=== PATIENT | male | born 1965 | race Caucasian/White ===

== ENCOUNTER → 2017-03-27 | Outpatient (REF) | payer BC, OTHER ==
[~2017-03-27] MED LIST: /CELE20CA; /MOXI40TA; ATROVENT0.02%; AUGM875T28 PO; BUDE20IN; CALCTAB22; CARA1TAB6 PO; GEMF600T; HYDR25TA6; IRON65TA PO; LISI10TA4; NEXI40CA PO; NICO21DI4; NICO21DI5 TD; PRED10TA2; SIMV40TA2; THERGRAN; VITA200015 PO; XOPE1.252; vitamin b12
[2017-03-27 14:00] LABS: CONTROL LINE HPYORI INT CTR LINE PRESENT
== END ==
LOC: M LAB REF 13:13
PROVIDERS: ATTEND Nurse Practitioner Family
DX: R10.12 Left upper quadrant pain (principal)

== ENCOUNTER → 2017-08-11 | Outpatient (REF) | payer OTHER ==
[2017-08-13 11:43] LABS: MEAN CORPUSCULAR VOLUME 91.5 fl (80.0-96.0); WHITE BLOOD COUNT 8.8 10^3/uL (4.0-10.0)
[2017-08-13 11:44] LABS: BASO % 0.9 % (0.0-1.0); EOS % 2.9 % (0.0-3.0); IMMATURE GRANULOCYTE % 0.2 % (0-0); LYMPH % 18.5 % (24.0-44.0); MEAN CORPUSCULAR HEMOGLOBIN 29.5 pg (27.0-33.0); MEAN CORPUSCULAR HGB CONC 32.3 g/dl (32.0-36.5); MONO % 6.5 % (0.0-5.0); PLATELET COUNT, AUTOMATED 210 10^3/uL (150-450); RED CELL DISTRIBUTION WIDTH 13.2 % (11.5-14.5)
[2017-08-13 11:45] LABS: BASO # 0.1 10^3/uL (0.0-0.2); EOS # 0.3 10^3/uL (0.0-0.50); LYMPH # 1.6 10^3/uL (1.5-4.5); MONO # 0.6 10^3/uL (0.0-0.8); NEUTROPHILS # 6.2 10^3/uL (1.8-7.7)
[2017-08-13 11:46] LABS: ADD MANUAL DIFFER NO; ADD MORPHOLOGY? NO; BLOOD UREA NITROGEN 14 MG/DL (7-18); DIFF SLIDE NUMBER 372; GLUCOSE, FASTING 70 MG/DL (70-105)
[2017-08-13 11:47] LABS: ALKALINE PHOSPHATASE 72 U/L (45-117); ALT/SGPT 28 U/L (12-78); ANION GAP 5 MEQ/L (8-16); AST/SGOT 21 U/L (7-37); BILIRUBIN,TOTAL 0.5 MG/DL (0.2-1.0); CARBON DIOXIDE LEVEL 32 MEQ/L (21-32); CHLORIDE LEVEL 106 MEQ/L (98-107); CREATININE FOR GFR 0.72 MG/DL (0.70-1.30); GLOMERULAR FILTRATION RATE > 60.0 (>56); POTASSIUM SERUM 4.3 MEQ/L (3.5-5.1); SODIUM LEVEL 143 MEQ/L (136-145); TOTAL PROTEIN 6.8 GM/DL (6.4-8.2)
[2017-08-13 11:48] LABS: ALBUMIN 3.9 GM/DL (3.2-5.2); ALBUMIN/GLOBULIN RATIO 1.34 (1.00-1.93)
== END ==
LOC: M LABDRWAD 10:28
PROVIDERS: ATTEND Physician Assistant
DX: R10.32 Left lower quadrant pain (principal)

== ENCOUNTER 2017-09-03 11:18 | Day surgery (SDC) | payer BC ==
[~2017-09-03] VITALS: Ht 182.9 cm; Wt 91.8 kg
[~2017-09-03 11:18] MED LIST changes: +ATOR40TA75 PO; +PROPOFOL 200 MG/20 ML VIAL As Ordered ONE; +antibiotic
[2017-09-03] MEDS ORDERED: MULT1TAB10 PO (11:53)
[2017-09-03] MEDS ORDERED: ASPI1TAB PO (11:53)
[2017-09-03] MEDS ORDERED: SUCR1TA PO (11:53)
[2017-09-03] MEDS ORDERED: COLC1TAB13 PO (11:53)
[2017-09-03] MEDS ORDERED: BACT800T5 PO (11:53)
[2017-09-03] MEDS ORDERED: NS 1,000 ML IV ONE (12:00)
[2017-09-03] MEDS ORDERED: LIDOCAINE 2% INJ 100 MG/5 ML SDV (FOR ANES.) As Ordered ONE (12:13)
--- NOTE | 2017-09-03 14:10 | ROOR ---
Patient Name: Scar Pillai Procedure Date: 09/03/2017 1:35 PM Date of : 1965 Age: 52 Room: [facility] Gender: Male Note Status: Finalized Procedure: Total Colonoscopy to Cecum + Cold Snare Polypectomy + Hemoclips Indications: Screening for colorectal malignant neoplasm Providers: Mendoza Parker MD Referring MD: SOCO WEBER JR, MD Requesting Provider: Medicines: Monitored Anesthesia Care Complications: No immediate complications. Procedure: Pre-Anesthesia Assessment: - The heart rate, respiratory rate, oxygen saturations, blood pressure, adequacy of pulmonary ventilation, and response to care were monitored throughout the procedure. The Colonoscope was introduced through the anus and advanced to the cecum, identified by appendiceal orifice and ileocecal valve. The colonoscopy was performed without difficulty. The patient tolerated the procedure well. The quality of the bowel preparation was excellent. Findings: The perianal and digital rectal examinations were normal. Non-bleeding internal hemorrhoids were found during retroflexion. The hemorrhoids were small and Grade I (internal hemorrhoids that do not prolapse). Scattered small-mouthed diverticula were found in the recto-sigmoid colon, sigmoid colon and descending colon. A small polyp was found at 50 cm proximal to the anus. The polyp was sessile. The polyp was removed with a cold snare. Resection and retrieval were complete. A medium polyp was found at 20 cm proximal to the anus. The polyp was sessile. The polyp was removed with a cold snare. Resection and retrieval were complete. To prevent bleeding after the polypectomy, two hemostatic clips were successfully placed (MR conditional). There was no bleeding at the end of the procedure. The exam was otherwise without abnormality on direct and retroflexion views. Impression: - Non-bleeding internal hemorrhoids. - Diverticulosis in the recto-sigmoid colon, in the sigmoid colon and in the descending colon. - One small polyp at 50 cm proximal to the anus, removed with a cold snare. Resected and retrieved. - One medium polyp at 20 cm proximal to the anus, removed with a cold snare. Resected and retrieved. Clips (MR conditional) were placed. - The examination was otherwise normal on direct and retroflexion views. - The exam was otherwise normal to the cecum. Recommendation: - Patient has a contact number available for emergencies. The signs and symptoms of potential delayed complications were discussed with the patient. Return to normal activities tomorrow. Written discharge instructions were provided to the patient. - High fiber diet. - Discharge patient to home. - Continue present medications. - Await pathology results. - Telephone GI clinic for pathology results in 1 week. - Repeat colonoscopy for surveillance based on pathology results. - Return to referring physician. - The findings and recommendations were discussed with the patient's family. Mendoza Parker MD Mendoza Parker MD 09/03/2017 2:10:20 PM This report has been signed electronically. Number of Addenda: 0 Note Initiated On: 09/03/2017 1:35 PM Estimated Blood Loss: Estimated blood loss: none.
[2017-09-03 14:30] VITALS: BP 133/84
== END 2017-09-03 14:36 | disposition home or self-care (01) ==
LOC: M OPP 11:18
PROVIDERS: ATTEND Internal Medicine Gastroenterology
DX: Z12.11 Encounter for screening for malignant neoplasm of colon (principal); D12.5 Benign neoplasm of sigmoid colon; K57.30 Diverticulosis of large intestine without perforation or abscess without bleeding; K64.0 First degree hemorrhoids; I25.10 Atherosclerotic heart disease of native coronary artery without angina pectoris; E78.5 Hyperlipidemia, unspecified; M19.90 Unspecified osteoarthritis, unspecified site; G47.30 Sleep apnea, unspecified; K13.0 Diseases of lips; Z98.84 Bariatric surgery status; Z87.891 Personal history of nicotine dependence; Z79.899 Other long term (current) drug therapy; Z79.82 Long term (current) use of aspirin

== ENCOUNTER → 2017-11-28 | Outpatient (REF) | payer BC ==
[2017-11-28 18:54] LABS: IRON (FE) 113 UG/DL (65-175); PERCENT SATURATION 33.4 % (19.7-50.0); TOTAL IRON BINDING CAPACITY 338 UG/DL (250-450)
[2017-11-28 19:05] LABS: FOLATE 10.9 NG/ML; VITAMIN B12 LEVEL 495 PG/ML
== END ==
LOC: M LAB REF 16:36
DX: I25.10 Atherosclerotic heart disease of native coronary artery without angina pectoris (principal); Z98.84 Bariatric surgery status
CPT/HCPCS: 82746

== ENCOUNTER → 2018-10-06 | Outpatient (REF) | payer BC ==
[~2018-10-06] MED LIST changes: +ASPI1TAB PO; +BACT800T5 PO; +COLC1TAB13 PO; +MULT1TAB10 PO; -NICO21DI5 TD; +NICO21DI6 TD; -PROPOFOL 200 MG/20 ML VIAL As Ordered ONE; +SUCR1TA PO
== END ==
LOC: M LAB REF 18:57
PROVIDERS: ATTEND Nurse Practitioner Family
DX: B00.0 Eczema herpeticum (principal); R53.83 Other fatigue

== ENCOUNTER → 2018-12-03 | Outpatient (REF) | payer OTHER ==
[2018-12-03 19:05] LABS: PERCENT SATURATION 39.3 % (19.7-50.0)
== END ==
LOC: M LAB REF 17:40
PROVIDERS: ATTEND Internal Medicine
DX: Z98.84 Bariatric surgery status (principal); R41.3 Other amnesia

== ENCOUNTER → 2019-08-10 | Outpatient (REF) | payer OTHER ==
[~2019-08-10] MED LIST changes: -/CELE20CA; -/MOXI40TA; -ASPI1TAB PO; +ASPI81TA26 PO; +AVEL1TAB2; +CELE1CAP4
== END ==
LOC: M LABNEURO 09:40
PROVIDERS: ATTEND Psychiatry & Neurology Neurology
DX: G62.9 Polyneuropathy, unspecified (principal)

== ENCOUNTER → 2019-10-04 | Outpatient (CLI) | payer OTHER ==
[2019-10-04 12:34] LABS: FOLATE 15.7 NG/ML
== END ==
LOC: M WUC 10:21
PROVIDERS: ATTEND Psychiatry & Neurology Neurology
DX: E53.8 Deficiency of other specified B group vitamins (principal)

== ENCOUNTER → 2019-11-08 | Outpatient (REF) | payer OTHER ==
[2019-11-08 13:18] LABS: BASO # 0.1 10^3/uL (0.0-0.2); BASO % 1.2 % (0.0-1.0); EOS # 0.1 10^3/uL (0.0-0.5); EOS % 2.2 % (0.0-3.0); HEMOGLOBIN 12.7 g/dl (13.5-17.5); LYMPH # 0.8 10^3/uL (1.5-5.0); LYMPH % 16.7 % (24.0-44.0); MEAN CORPUSCULAR HEMOGLOBIN 30.9 pg (27.0-33.0); MEAN CORPUSCULAR HGB CONC 31.8 g/dl (32.0-36.5); MEAN CORPUSCULAR VOLUME 97.3 fl (80.0-96.0); MONO # 0.5 10^3/uL (0.0-0.8); MONO % 9.7 % (0.0-5.0); NEUTROPHILS # 3.5 10^3/uL (1.5-8.5); PLATELET COUNT, AUTOMATED 156 10^3/uL (150-450); RED BLOOD COUNT 4.11 10^6/uL (4.30-6.10)
[2019-11-08 13:24] LABS: ALBUMIN 4.1 GM/DL (3.2-5.2); ALT/SGPT 153 U/L (12-78); BILIRUBIN,TOTAL 0.6 MG/DL (0.2-1.0); BLOOD UREA NITROGEN 9 MG/DL (7-18); C REACTIVE PROTEIN QUANTITATIV < 0.30 MG/DL (0.00-0.30); CALCIUM LEVEL 8.7 MG/DL (8.5-10.1); CARBON DIOXIDE LEVEL 29 MEQ/L (21-32); CHLORIDE LEVEL 105 MEQ/L (98-107); COMPLEMENT C3 71 MG/DL (90-180); COMPLEMENT C4 29 MG/DL (10-40); CREATININE FOR GFR 0.64 MG/DL (0.70-1.30); GLOMERULAR FILTRATION RATE > 60.0 (>56); GLUCOSE, FASTING 77 MG/DL (70-100); RHEUMATOID FACTOR QUANT 12.4 IU/ML (<15.0); SODIUM LEVEL 141 MEQ/L (136-145)
[2019-11-08 13:29] LABS: INR 1.02; PROTHROMBIN TIME 13.1 SECONDS (11.8-14.0)
[2019-11-08 13:30] LABS: PARTIAL THROMBOPLASTIN TIME 28.8 SECONDS (25.0-38.4)
[2019-11-08 14:00] LABS: ERYTHROCYTE SEDIMENTATION RATE 10 mm/hr (0-20)
[2019-11-09 11:27] LABS: ALBUMIN 4.44 GM/DL (3.29-5.55); ALBUMIN % 63.4 % (55.8-66.1); ALPHA-1-GLOBULIN % 5.4 % (2.9-4.9); ALPHA-1-GLOBULINS 0.38 GM/DL (0.17-0.41); ALPHA-2-GLOBULINS 0.55 GM/DL (0.42-0.99); ALPHA-2-GLOBULINS % 7.9 % (7.1-11.8); BETA-1-GLOBULINS 0.39 GM/DL (0.28-0.60); BETA-1-GLOBULINS % 5.6 % (4.7-7.2); BETA-2-GLOBULINS 0.36 GM/DL (0.19-0.55); BETA-2-GLOBULINS % 5.1 % (3.2-6.5); GAMMA GLOBULIN % 12.6 % (11.1-18.8); GAMMA GLOBULINS 0.88 GM/DL (0.65-1.58)
[2019-11-10 14:12] LABS: ANTI DS-DNA AB Negative (Negative); CYCLIC CITRULLINATED PEPTIDE 22 units (0-19); RNP ANTIBODY < 0.2 AI (0.0-0.9); SMITHS ANTIBODY < 0.2 AI (0.0-0.9); SSA SJOGRENS A <0.2 AI (0.0-0.9); SSB SJOGRENS B <0.2 AI (0.0-0.9)
== END ==
LOC: M SFHCRHEU 10:10
PROVIDERS: ATTEND Internal Medicine
DX: M25.50 Pain in unspecified joint (principal); R76.8 Other specified abnormal immunological findings in serum; F10.20 Alcohol dependence, uncomplicated

== ENCOUNTER 2021-03-17 17:54 | Observation (INO) | payer OTHER, SELFPAY ==
[~2021-03-17] VITALS: Ht 182.9 cm; Wt 117.8 kg
[~2021-03-17 17:54] MED LIST changes: +COLC0.6T47 PO; -COLC1TAB13 PO; +chlordiazePOXIDE 25 MG CAP PO SCH
[2021-03-17] MEDS ORDERED: LORazepam 2 MG/ML VIAL IV STA ×2 (18:06→20:40)
[2021-03-17] MEDS ORDERED: LORazepam 2 MG TAB PO PRN ×2 (18:10→21:25)
[2021-03-17] MEDS ORDERED: NS 1,000 ML IV ONE ×2 (18:10→20:40)
[2021-03-17] MEDS: THIAMINE 100 MG TAB PO SCH (18:29)
[2021-03-17 18:31] LABS: BASO % 0.9 % (0.0-1.0); EOS # 0.1 10^3/uL (0.0-0.5); EOS % 1.1 % (0.0-3.0); HEMATOCRIT 45.7 % (42.0-52.0); HEMOGLOBIN 15.1 g/dl (13.5-17.5); LYMPH # 0.7 10^3/uL (1.5-5.0); LYMPH % 15.8 % (24.0-44.0); MEAN CORPUSCULAR HEMOGLOBIN 29.9 pg (27.0-33.0); MEAN CORPUSCULAR VOLUME 90.5 fl (80.0-96.0); MONO # 0.5 10^3/uL (0.0-0.8); MONO % 9.8 % (2.0-8.0); NEUTROPHILS # 3.3 10^3/uL (1.5-8.5); NEUTROPHILS % 72.2 % (36.0-66.0); PLATELET COUNT, AUTOMATED 104 10^3/uL (150-450); RED BLOOD COUNT 5.05 10^6/uL (4.30-6.10); WHITE BLOOD COUNT 4.6 10^3/uL (4.0-10.0)
[2021-03-17] MEDS ORDERED: SULF1TAB30 PO (18:52)
[2021-03-17] MEDS ORDERED: AMIT25TA17 PO (18:52)
[2021-03-17] MEDS ORDERED: LOTR5CAP2 PO (18:52)
[2021-03-17 19:02] LABS: ACETAMINOPHEN LEVEL < 2.0 UG/ML (10.0-30.0); ALBUMIN 3.6 GM/DL (3.2-5.2); ALT/SGPT 62 U/L (12-78); BILIRUBIN,DIRECT 0.4 MG/DL (0.0-0.2); BILIRUBIN,TOTAL 1.1 MG/DL (0.2-1.0); BLOOD UREA NITROGEN 11 MG/DL (7-18); CALCIUM LEVEL 8.9 MG/DL (8.5-10.1); CARBON DIOXIDE LEVEL 29 MEQ/L (21-32); CHLORIDE LEVEL 98 MEQ/L (98-107); CK-MB VALUE MASS 2.3 NG/ML (<3.6); CPK CREATINE PHOSPHOKINASE 85 U/L (39-308); CREATININE FOR GFR 0.77 MG/DL (0.70-1.30); ETHYL ALCOHOL (ETHANOL) < 0.003 % (0.000-0.010); GLOMERULAR FILTRATION RATE > 60.0 (>56); GLUCOSE, FASTING 188 MG/DL (70-100); MB/CK RELATIVE INDEX 2.71 (< OR =4); POTASSIUM SERUM 3.8 MEQ/L (3.5-5.1); SALICYLATE LEVEL 3.2 MG/DL (5.0-30.0); SODIUM LEVEL 134 MEQ/L (136-145); TROPONIN I < 0.02 NG/ML (< 0.10)
[2021-03-17 19:25] LABS: RSV AMPLIFICATION NEGATIVE (NEGATIVE)
[2021-03-17] MEDS ORDERED: chlordiazePOXIDE 25 MG CAP PO ONE (19:30)
[2021-03-17 19:38] LABS: OSMOLALITY SERUM 287 MOSM/KG (275-295)
--- NOTE | 2021-03-17 19:57 | REPVR ---
PROCEDURE INFORMATION: Exam: CT Head Without Contrast Exam date and time: 03/17/2021 6:57 PM Age: 55 years old Clinical indication: Injury or trauma and condition or disease; Fall; Blunt trauma (contusions or hematomas); Consciousness not specified; Convulsions or seizures; Unspecified; Additional info: Seizure/fall TECHNIQUE: Imaging protocol: Computed tomography of the head without contrast. Radiation optimization: All CT scans at this facility use at least one of these dose optimization techniques: automated exposure control; mA and/or kV adjustment per patient size (includes targeted exams where dose is matched to clinical indication); or iterative reconstruction. COMPARISON: No relevant prior studies available. FINDINGS: Brain: Ventricles, basilar cisterns, and sulci are normal in size for age. No intracranial mass, mass effect or midline shift. No acute intracranial hemorrhage. No focal effacement of cortical sulci to indicate acute cortical infarct. Paranasal sinuses: Imaged paranasal sinuses are clear. Mastoid air cells: Mastoid air cells are normally aerated. Orbital cavity: Imaged orbits are unremarkable. Bones/joints: No calvarial fracture or destructive process. Soft tissues: Left frontoparietal vertex extracranial scalp swelling. IMPRESSION: 1. Left frontoparietal vertex extracranial scalp swelling. 2. No underlying acute or concerning focal intracranial abnormality. Electronically signed by: Rodolfo Montague On 03/17/2021 19:57:23 PM
--- NOTE | 2021-03-17 19:59 | REPVR ---
PROCEDURE INFORMATION: Exam: CT Cervical Spine Without Contrast Exam date and time: 03/17/2021 6:57 PM Age: 55 years old Clinical indication: Injury or trauma; Fall; Blunt trauma; Additional info: Seizure/fall TECHNIQUE: Imaging protocol: Computed tomography images of the cervical spine without contrast. Radiation optimization: All CT scans at this facility use at least one of these dose optimization techniques: automated exposure control; mA and/or kV adjustment per patient size (includes targeted exams where dose is matched to clinical indication); or iterative reconstruction. COMPARISON: No relevant prior studies available. FINDINGS: Bones/joints: No traumatic segmental malalignment of cervical spine or craniocervical junction. Vertebral body height is maintained at all levels. No acute fracture. No destructive or blastic cervical spine osseous lesion. Discs/Spinal canal/Neural foramina: Intervertebral disc height is decreased at multiple levels, with typical degenerative pattern and associated endplate, articular pillar and uncovertebral spurs. Lungs: No concerning abnormality of the imaged lung apices. Soft tissues: Soft tissues show no concerning abnormality or asymmetry. IMPRESSION: 1. No acute fracture or traumatic subluxation of the cervical spine. 2. Multilevel degenerative disc and articular pillar arthropathy. Electronically signed by: Rodolfo Montague On 03/17/2021 19:59:08 PM
[2021-03-17 21:10] LABS: AMPHETAMINES LEVEL URINE NEGATIVE (NEGATIVE); BARBITURATES URINE NEGATIVE (NEGATIVE); BENZODIAZEPINES URINE NEGATIVE (NEGATIVE); CANNABINOIDS URINE NEGATIVE (NEGATIVE); COCAINE METABOLITE URINE NEGATIVE (NEGATIVE); METHADONE URINE NEGATIVE (NEGATIVE); OPIATES URINE NEGATIVE (NEGATIVE); PHENCYCLIDINE URINE NEGATIVE (NEGATIVE)
[2021-03-17] MEDS ORDERED: MOM 30ML SUSPENSION UDC PO PRN (21:25)
[2021-03-17] MEDS ORDERED: NICOTINE 21MG/24HR 1 EA TRANSDERMAL TD ONE (21:25)
[2021-03-17] MEDS ORDERED: ACETAMINOPHEN TAB 650MG DOSE (2X325MG) PO PRN (21:25)
[2021-03-17] MEDS ORDERED: MAALOX 30 ML SUSP *UDC PO PRN (21:25)
--- NOTE | 2021-03-17 21:46 | REPVR ---
PROCEDURE INFORMATION: Exam: XR Chest Exam date and time: 03/17/2021 9:02 PM Age: 55 years old Clinical indication: Other: Altered mental status TECHNIQUE: Imaging protocol: XR of the chest. Views: 1 view. COMPARISON: CR Abdomen,Flat Upright,PA CHEST 09/19/2014 5:39 PM FINDINGS: Lungs: Degree of lung inflation is normal. No evidence of pulmonary edema. No focal consolidation or parenchymal lung mass. Pleural spaces: No pleural effusion or pneumothorax. Heart/Mediastinum: Cardiac silhouette appears normal. No adenopathy or hilar mass. Bones/joints: Osseous structures show no concerning abnormality. IMPRESSION: No acute or focal cardiopulmonary process. Electronically signed by: Rodolfo Montague On 03/17/2021 21:46:06 PM
[2021-03-17] MEDS ORDERED: hydrALAZINE 20MG/ML 1ML VIAL (J0360 PER 20MG) IV PRN (21:50)
--- NOTE | 2021-03-17 22:01 | HPEPDOC ---
[facility] Medical History & Physical Date of Admission Mar 17, 2021 Date of Service: Mar 17, 2021 Primary Care Physician: A Attending Physician: SAJI DOBBINS MD History and Physical CHIEF COMPLAINT: Seizure HISTORY OF PRESENT ILLNESS: . Mr. Pillai is a 55-year-old male who was brought to the ER by EMS after suffering a seizure at home. The patient is a known alcoholic and decided to try to stop drinking 2-3 days ago. At the time of my evaluation, the patient was oriented to person and place. He did not know the year and was confused as to events. He said the month was "March". His fiance is at bedside and details of history are obtained from a thorough review of the medical record and from the patient and the patient's fiance. He admits to drinking anywhere from half of a fifth to 1 L of bourbon whiskey per day. He has been to rehabilitation in the past with the most recent stay about 1 year ago. He has had seizures with withdrawal in the past. He denies any fever, chills, nausea, vomiting or diarrhea. He was very reluctant to stay, but agreed after he was told that he was not able to make his own decisions at this point in time. He did hit his head. When the seizure occurred. CT showed a left frontoparietal extracranial scalp swelling but no acute fracture or other acute pathophysiology. CT of the neck was negative for any acute fracture but did show degenerative disc disease. The patient was given Ativan and Librium in the ER and started on IV fluids. He was also given multivitamin and thiamine by mouth. Blood pressure was elevated at 205/98. Pulse was 93. Patient was satting 98% on room air. He was afebrile. Labs were remarkable for decreased platelets at 104. Lactic acid was 2.9. Sodium is decreased at 134. Total bilirubin 1.1. There is some mild elevation of AST at 70. Patient's fiance denies any history of hepatitis, cirrhosis or pancreatitis. PAST MEDICAL HISTORY: 1. Obstructive sleep apnea, noncompliant with CPAP. 2. Coronary artery disease. 3. Hyperlipidemia. 4. Hypertension. 5. Degenerative joint disease. 6. Peptic ulcer disease. 7. Gastric bypass. 8. COPD 9. Gout. 10. Seizure secondary to alcohol withdrawal PAST SURGICAL HISTORY: 1. Gastric bypass. 2. Heart catheterization with stent placement. 3. Arthroscopy on the right knee SOCIAL HISTORY: Tobacco use: Patient admits to smoking 2 packs of cigarettes per day ETOH: Drinks anywhere from half a fifth to 1 L of bourbon whiskey per day Illicit drug use: Denies Patient lives with: His fiance FAMILY HISTORY: Patient's father is 79 years old and was recently diagnosed with congestive heart failure. His mother at 52 with a history of heart disease. REVIEW OF SYSTEMS: Complete 10 point review systems is negative except as noted above PHYSICAL EXAMINATION: Patient is seen in the ER, He is somewhat lethargic and by the end of the evaluation was drifting off easily. He is oriented to person and situation. HEENT is WNL. Neck is supple. Lungs with expiratory wheeze. Heart regular rate and rhythm without murmur. Abdomen is soft, non-tender to palpation with bowel sounds positive. Extremities with good ROM and strength equal bilaterally. No lower extremity edema. Pedal pulses are positive. Skin is warm and dry with no obvious rash or lesion. Neuro: grossly intact. Psych: As noted ASSESSMENT AND PLAN: 1. Alcohol withdrawal with seizure. We'll continue the patient on C1 protocol and add Librium per protocol. Will continue multivitamin, thiamine and folic acid daily. Will continue on IV fluids for now. Continue to pet counselor for cessation. Will consult case management for possible referral to rehabilitation. 2. Hypertension with hypertensive urgency. We'll continue home Lotrel and will add hydralazine for use as needed. Monitor with routine vital signs and adjust medications as needed based on trends. 3. Peptic ulcer disease/gastroesophageal reflux disease with history of gastric bypass. Protonix. 4. Lactic acidosis with alcohol withdrawal seizure. Continue IV fluids and recheck lactic acid per protocol. 5. Thrombocytopenia with alcohol abuse. No history of cirrhosis noted. Continue to monitor with daily labs. 6. Hyperglycemia with no history of diabetes. Will check HbA1c in the morning. Monitor blood glucose with daily labs for now. 7. DVT prophylaxis. Will add Lovenox. CODE STATUS: CODE STATUS was discussed with the patient's fiance as the patient is unable to address at this time. We will consider him full code. His father, Jasmeet, would act as his surrogate if he were unable to make his own decisions. Patient is considered high risk of further deterioration including recurrent intractable seizure. He is admitted for close observation and further evaluation and expected to remain at least one midnight. Vital Signs Vital Signs Date Time Temp Pulse Resp B/P (MAP) Pulse Ox O2 Delivery O2 Flow Rate FiO2 03/17/21 21:00 90 20 165/83 (110) 98 Room Air 03/17/21 19:42 97.3 Laboratory Data Labs 24H Laboratory Tests 2 03/17/21 18:19: Immature Granulocyte % (Auto) 0.2, Neutrophils (%) (Auto) 72.2H, Lymphocytes (%) (Auto) 15.8L, Monocytes (%) (Auto) 9.8H, Eosinophils (%) (Auto) 1.1, Basophils (%) (Auto) 0.9, Neutrophils # (Auto) 3.3, Lymphocytes # (Auto) 0.7L, Monocytes # (Auto) 0.5, Eosinophils # (Auto) 0.1, Basophils # (Auto) 0.0, Nucleated Red Blood Cells % (auto) 0.0, Anion Gap 7L, Glomerular Filtration Rate > 60.0, Osmolality 287, Calcium Level 8.9, Total Bilirubin 1.1H, Direct Bilirubin 0.4H, Aspartate Amino Transf (AST/SGOT) 70H, Alanine Aminotransferase (ALT/SGPT) 62, Alkaline Phosphatase 99, Ammonia 17, Total Creatine Kinase 85, Creatine Kinase MB 2.3, Creatine Kinase MB Relative Index 2.71, Troponin I < 0.02, Total Protein 7.0, Albumin 3.6, Albumin/Globulin Ratio 1.1, Thyroid Stimulating Hormone (TSH) 1.040, Salicylates Level 3.2L, Acetaminophen Level < 2.0L, Ethyl Alcohol Level < 0.003, Coronavirus (COVID-19)(PCR) NEGATIVE, Influenza Type A (RT-PCR) NEGATIVE, Influenza Type B (RT-PCR) NEGATIVE, Respiratory Syncytial Virus (PCR) NEGATIVE 03/17/21 18:26: Lactic Acid Level 2.9*H, Urine Opiates Screen NEGATIVE, Urine Methadone Screen NEGATIVE, Urine Barbiturates Screen NEGATIVE, Urine Phencyclidine Screen NEGATIVE, Urine Amphetamines Screen NEGATIVE, Urine Benzodiazepines Screen NEGATIVE, Urine Cocaine Metabolite Screen NEGATIVE, Urine Cannabinoids Screen NEGATIVE CBC/BMP Laboratory Tests 03/17/21 18:19 Home Medications Scheduled Amitriptyline HCl (Amitriptyline HCl) 25 Mg Tablet, 25 MG PO DAILY Amlodipine Besylate/Benazepril (Lotrel 5-10 mg Capsule) 1 Each Capsule, 1 CAP PO DAILY Aspirin (Aspirin EC) 81 Mg Tab, 81 MG PO DAILY Atorvastatin Calcium (Atorvastatin Calcium) 40 Mg Tab, 40 MG PO DAILY Sulfasalazine (Sulfasalazine) 500 Mg Tablet, 500 MG PO DAILY Allergies Coded Allergies: No Known Allergies (Verified , 09/02/17) A-FIB/CHADSVASC A-FIB History Current/History of A-Fib/PAF?: No JOSE SILVA Mar 17, 2021 22:01
[2021-03-17 22:33] LABS: RSV AMPLIFICATION NEGATIVE (NEGATIVE)
[2021-03-17 23:00] VITALS: BP_SYST 174; BP_DIAS 100; BP_DIAS 104
[2021-03-18] VITALS (7 sets, daily range): BP systolic 170–180; BP diastolic 100–110; O2SAT 94–95
[2021-03-18] MEDS ORDERED: chlordiazePOXIDE 25 MG CAP PO SCH
[2021-03-18] MEDS: NS 1,000 ML IV SCH ×2 (00:59→07:25)
[2021-03-18 05:54] LABS: HEMOGLOBIN 13.8 g/dl (13.5-17.5); MEAN CORPUSCULAR HEMOGLOBIN 29.9 pg (27.0-33.0); MEAN CORPUSCULAR HGB CONC 32.9 g/dl (32.0-36.5); MEAN CORPUSCULAR VOLUME 90.9 fl (80.0-96.0); PLATELET COUNT, AUTOMATED 113 10^3/uL (150-450); RED BLOOD COUNT 4.62 10^6/uL (4.30-6.10); WHITE BLOOD COUNT 5.1 10^3/uL (4.0-10.0)
[2021-03-18 06:19] LABS: BLOOD UREA NITROGEN 8 MG/DL (7-18); CALCIUM LEVEL 8.4 MG/DL (8.5-10.1); CARBON DIOXIDE LEVEL 32 MEQ/L (21-32); CHLORIDE LEVEL 103 MEQ/L (98-107); CREATININE FOR GFR 0.58 MG/DL (0.70-1.30); GLOMERULAR FILTRATION RATE > 60.0 (>56); GLUCOSE, FASTING 85 MG/DL (70-100); POTASSIUM SERUM 3.7 MEQ/L (3.5-5.1); SODIUM LEVEL 138 MEQ/L (136-145)
[2021-03-18] MEDS ORDERED: BENAZEPRIL 20 MG TAB PO SCH (09:00)
[2021-03-18] MEDS ORDERED: BENAZEPRIL 5 MG TAB PO SCH (09:00)
[2021-03-18] MEDS ORDERED: PANTOPRAZOLE 40MG TAB (PROTONIX) PO SCH (09:00)
[2021-03-18] MEDS ORDERED: FOLIC ACID 1 MG TAB PO SCH ×2 (09:00)
[2021-03-18] MEDS ORDERED: ENOXAPARIN 40MG/0.4ML SYRINGE (J1650 PER 10MG) SC SCH (09:00)
[2021-03-18] MEDS ORDERED: AMITRIPTYLINE 25MG TABLET PO SCH (09:00)
[2021-03-18] MEDS ORDERED: MULTIVITAMINS/MINERALS THERAP 1 TAB PO SCH (09:00)
[2021-03-18] MEDS ORDERED: ATORVASTATIN 20 MG TAB PO SCH (09:00)
[2021-03-18] MEDS ORDERED: ASPIRIN 81MG ENTERIC TABLET PO SCH (09:00)
[2021-03-18] MEDS ORDERED: amLODIPine 5 MG TAB PO SCH (09:00)
[2021-03-18] MEDS ORDERED: BENAZEPRIL 20 MG TAB PO ONE (09:45)
[2021-03-18] MEDS ORDERED: PANT40TA29 PO (09:51)
[2021-03-18] MEDS ORDERED: THIA100TA PO (09:51)
[2021-03-18] MEDS ORDERED: LOTR10CA PO (09:51)
[2021-03-18] MEDS ORDERED: FOLI1TAB11 PO (09:51)
[2021-03-18] MEDS: THIAMINE 100 MG TAB PO SCH (10:40)
--- NOTE | 2021-03-18 12:01 | DS.PDOC ---
Discharge Summary General Date of Admission Mar 17, 2021 at 17:55 Date of Discharge 03/18/2021 Attending Physician: ARLYN ZAFAR MD Discharge Summary PROCEDURES PERFORMED DURING STAY: None ADMITTING DIAGNOSES: Alcohol withdrawal c/b withdrawal seizure DISCHARGE DIAGNOSES: Alcohol withdrawal c/b withdrawal seizure Obstructive sleep apnea, noncompliant with CPAP. Coronary artery disease. Hyperlipidemia. Hypertension with hypertensive urgency Degenerative joint disease. Peptic ulcer disease. Gastric bypass. COPD Gout. Seizure secondary to alcohol withdrawal COMPLICATIONS/CHIEF COMPLAINT: Alcohol Withdrawl,Alcohol Withdral Seizure. HISTORY OF PRESENT ILLNESS: 55-year-old M who was brought to the ER by EMS after suffering a seizure at home. He has a long standing history of alcohol use disorder with dependence and had decided to stop drinking 2-3 days prior to his presentation. HOSPITAL COURSE: At time of internal medicine evaluation in the ED, he was oriented to person and place. He did not know the year and was confused as to events. He said the month was "March". His fiance was at bedside and gave some of the history. He admitted to drinking anywhere from half of a fifth to 1 L of bourbon whiskey per day. He has been to rehabilitation in the past with the most recent stay about 1 year ago. He has had seizures with withdrawal in the past. He denied any fever, chills, nausea, vomiting or diarrhea. He was very reluctant to stay, but agreed after he was told that he was not able to make his own decisions at this point in time. He did hit his head. When the seizure occurred. CT showed a left frontoparietal extracranial scalp swelling but no acute fracture or other acute pathophysiology. CT of the neck was negative for any acute fracture but did show degenerative disc disease. The patient was given Ativan and Librium in the ER and started on IV fluids. He was also given multivitamin and thiamine by mouth and placed on CIWA protocol. On day 2 of his admission he was fully oriented but quite hypertensive during which his BP meds were increased to amlodipine 10 from 5mg daily and benazepril 20mg from 10mg daily. He demanded to be discharged and I tried to explain that he was still in the window of withdrawal and was at risk of further seizures and would be best if he stayed and was treated through his withdrawal and HTN meds optimized but he declined. He therefore signed out AMA. BP med changes were explained and sent to the pharmacy together with thiamine, folate and pantoprazole. He was urged to follow up with his PCP within 7d. DISCHARGE MEDICATIONS: Please see below. ALLERGIES: Please see below. PHYSICAL EXAMINATION ON DISCHARGE: VITAL SIGNS: Please see below. General: NAD, awake, alert and oriented x 3 HEENT: EOMI, MMM. Neck: is supple with full range of motion Pulm: Lungs with expiratory wheeze. Heart regular rate and rhythm without murmur. Abdomen: is soft, non-tender to palpation with bowel sounds positive. Extremities: with good ROM and strength equal bilaterally. No lower extremity edema. Pedal pulses are wnl. Skin: is warm and dry with no obvious rash or lesion. Neuro: CN3-12 intact, 5/5 strength and tone in all extremities, grossly intact. Psych: As noted LABORATORY DATA: Please see below. IMAGING: Ct head: Brain: Ventricles, basilar cisterns, and sulci are normal in size for age. No intracranial mass, mass effect or midline shift. No acute intracranial hemorrhage. No focal effacement of cortical sulci to indicate acute cortical infarct. Paranasal sinuses: Imaged paranasal sinuses are clear. Mastoid air cells: Mastoid air cells are normally aerated. Orbital cavity: Imaged orbits are unremarkable. Bones/joints: No calvarial fracture or destructive process. Soft tissues: Left frontoparietal vertex extracranial scalp swelling. IMPRESSION: 1. Left frontoparietal vertex extracranial scalp swelling. 2. No underlying acute or concerning focal intracranial abnormality. CXR: Lungs: Degree of lung inflation is normal. No evidence of pulmonary edema. No focal consolidation or parenchymal lung mass. Pleural spaces: No pleural effusion or pneumothorax. Heart/Mediastinum: Cardiac silhouette appears normal. No adenopathy or hilar mass. Bones/joints: Osseous structures show no concerning abnormality. IMPRESSION: No acute or focal cardiopulmonary process. CT C-spine: Bones/joints: No traumatic segmental malalignment of cervical spine or craniocervical junction. Vertebral body height is maintained at all levels. No acute fracture. No destructive or blastic cervical spine osseous lesion. Discs/Spinal canal/Neural foramina: Intervertebral disc height is decreased at multiple levels, with typical degenerative pattern and associated endplate, articular pillar and uncovertebral spurs. Lungs: No concerning abnormality of the imaged lung apices. Soft tissues: Soft tissues show no concerning abnormality or asymmetry. IMPRESSION: 1. No acute fracture or traumatic subluxation of the cervical spine. 2. Multilevel degenerative disc and articular pillar arthropathy. PROGNOSIS: Good if he refrains from alcohol use ACTIVITY: As tolerated DIET: regular DISCHARGE PLAN: AMA DISPOSITION: AMA DISCHARGE INSTRUCTIONS: Please make an appointment with your PCP to be seen within the next 7d ITEMS TO FOLLOWUP ON ON OUTPATIENT: Alcohol use disorder with dependence with recent admission for alcohol withdrawal with seizure activity HTN DISCHARGE CONDITION: Stable. TIME SPENT ON DISCHARGE: 46 minutes. Vital Signs/I&Os Vital Signs Date Time Temp Pulse Resp B/P (MAP) Pulse Ox O2 Delivery O2 Flow Rate FiO2 03/18/21 08:00 98.7 87 20 180/110 (133) 92 Room Air 03/18/21 04:00 2.0 I&O- Last 24 Hours up to 6 AM 03/18/21 06:00 Intake Total 1600 ml Output Total 550 ml Balance 1050 ml Laboratory Data Labs 24H Laboratory Tests 2 03/17/21 18:19: Immature Granulocyte % (Auto) 0.2, Neutrophils (%) (Auto) 72.2H, Lymphocytes (%) (Auto) 15.8L, Monocytes (%) (Auto) 9.8H, Eosinophils (%) (Auto) 1.1, Basophils (%) (Auto) 0.9, Neutrophils # (Auto) 3.3, Lymphocytes # (Auto) 0.7L, Monocytes # (Auto) 0.5, Eosinophils # (Auto) 0.1, Basophils # (Auto) 0.0, Nucleated Red Blood Cells % (auto) 0.0, Anion Gap 7L, Glomerular Filtration Rate > 60.0, Osmolality 287, Calcium Level 8.9, Total Bilirubin 1.1H, Direct Bilirubin 0.4H, Aspartate Amino Transf (AST/SGOT) 70H, Alanine Aminotransferase (ALT/SGPT) 62, Alkaline Phosphatase 99, Ammonia 17, Total Creatine Kinase 85, Creatine Kinase MB 2.3, Creatine Kinase MB Relative Index 2.71, Troponin I < 0.02, Total Protein 7.0, Albumin 3.6, Albumin/Globulin Ratio 1.1, Thyroid Stimulating Hormone (TSH) 1.040, Salicylates Level 3.2L, Acetaminophen Level < 2.0L, Ethyl Alcohol Level < 0.003, Coronavirus (COVID-19)(PCR) NEGATIVE, Influenza Type A (RT-PCR) NEGATIVE, Influenza Type B (RT-PCR) NEGATIVE, Respiratory Syncytial Virus (PCR) NEGATIVE 03/17/21 18:26: Lactic Acid Level 2.9*H, Urine Opiates Screen NEGATIVE, Urine Methadone Screen NEGATIVE, Urine Barbiturates Screen NEGATIVE, Urine Phencyclidine Screen NEGATIVE, Urine Amphetamines Screen NEGATIVE, Urine Benzodiazepines Screen NEGATIVE, Urine Cocaine Metabolite Screen NEGATIVE, Urine Cannabinoids Screen NEGATIVE 03/17/21 21:25: Coronavirus (COVID-19)(PCR) NEGATIVE, Influenza Type A (RT-PCR) NEGATIVE, Influenza Type B (RT-PCR) NEGATIVE, Respiratory Syncytial Virus (PCR) NEGATIVE 03/17/21 22:15: Lactic Acid Level 0.7 03/18/21 05:25: Nucleated Red Blood Cells % (auto) 0.0, Anion Gap 3L, Glomerular Filtration Rate > 60.0, Estimated Mean Plasma Glucose 97, Hemoglobin A1c 5.0, Calcium Level 8.4L, Magnesium Level 2.0 CBC/BMP Laboratory Tests 03/17/21 18:19 03/18/21 05:25 Discharge Medications Scheduled Amitriptyline HCl (Amitriptyline HCl) 25 Mg Tablet, 25 MG PO DAILY, (Reported) Amlodipine Besylate/Benazepril (Lotrel 10-20 mg Capsule) 1 Each Capsule, 1 CAP PO DAILY Aspirin (Aspirin EC) 81 Mg Tab, 81 MG PO DAILY, (Reported) Atorvastatin Calcium (Atorvastatin Calcium) 40 Mg Tab, 40 MG PO DAILY, (Reported) Folic Acid (Folic Acid) 1 Mg Tablet, 1 MG PO DAILY Pantoprazole Sodium (Pantoprazole Sodium) 40 Mg Tablet.dr, 40 MG PO DAILY Sulfasalazine (Sulfasalazine) 500 Mg Tablet, 500 MG PO DAILY, (Reported) Thiamine Hcl (Vitamin B-1) 100 Mg Tablet, 100 MG PO BID Allergies Coded Allergies: No Known Allergies (Verified , 09/02/17) ARLYN ZAFAR MD Mar 18, 2021 10:04
--- NOTE | 2021-03-18 14:27 | ECGEPIP ---
[facility] - ED Test Date: 2021-03-17 Pat Name: CHRISTOPH MARTINEZ Department: Room: [place] [address] Gender: Male Dobie Man: RODERICK : 1965 Requested By: MK Torres Order Number: [id number] Reading MD: Re Guerrier Measurements Intervals [place] Rate: 89 P: 69 OR: 148 QRS: 5 QRSD: 120 T: 53 QT: 396 QTc: 481 Interpretive Statements Normal sinus rhythm Nonspecific intraventricular conduction delay No prior Electronically Signed on 03-18-2021 14:26:53 EDT by Re Guerrier
[2021-03-19] MEDS ORDERED: chlordiazePOXIDE 25 MG CAP PO SCH (02:00)
[2021-03-20] MEDS ORDERED: chlordiazePOXIDE 25 MG CAP PO SCH
== END 2021-03-18 11:34 | disposition left against medical advice (07) ==
LOC: M ED 17:54 → M ED INP 17:55 → M PCU 23:02
PROVIDERS: ADMIT Internal Medicine; ATTEND Internal Medicine
DX: F10.288 Alcohol dependence with other alcohol-induced disorder (principal); R56.9 Unspecified convulsions; G47.33 Obstructive sleep apnea (adult) (pediatric); I25.10 Atherosclerotic heart disease of native coronary artery without angina pectoris; E78.5 Hyperlipidemia, unspecified; I16.0 Hypertensive urgency; M19.90 Unspecified osteoarthritis, unspecified site; K27.9 Peptic ulcer, site unspecified, unspecified as acute or chronic, without hemorrhage or perforation; D69.6 Thrombocytopenia, unspecified; R73.9 Hyperglycemia, unspecified; R74.01 Elevation of levels of liver transaminase levels; K21.9 Gastro-esophageal reflux disease without esophagitis; J44.9 Chronic obstructive pulmonary disease, unspecified; M10.9 Gout, unspecified; Z98.84 Bariatric surgery status; Z79.899 Other long term (current) drug therapy; Z79.82 Long term (current) use of aspirin; F17.200 Nicotine dependence, unspecified, uncomplicated
CPT/HCPCS: 36415; 70450; 71045; 72125; 80048; 80076; 80143; 80307; 82077; 82140; 82550; 82553; 83036; 83605; 83735; 83930; 84443; 84484; 85025; 85027; 87631; 93005; 93041; 94760; 96361; 96372; 96374; 96376; 99285; J1650; J2060